=== PATIENT | female | born 1950 | race Caucasian/White ===

== ENCOUNTER 2022-09-13 13:19 | Emergency (ER) | payer MEDICARE, SELFPAY ==
[2022-09-13 13:18] VITALS: BP 162/86; PULSE 54; RESP 16; TEMP 36.7; O2SAT 100
--- NOTE | 2022-09-13 13:30 | DI.CT_ITS ---
Exam(s) CT HEAD CERVICAL SPINE WO EXAM: CT HEAD CERVICAL SPINE WO CLINICAL HISTORY: fall while skiing. TECHNIQUE: Imaging Protocol: Axial computed tomography images with coronal and sagittal reformatted images were created and reviewed COMPARISON: No exams were available for comparison FINDINGS: Head CT Ventricles and Extra axial spaces: Normal in size and morphology for the patient's age. Hemorrhage: None. Cerebral parenchyma: Normal. Midline shift: None. Brainstem/Cerebellum: Normal. Calvarium: Normal. Visualized Paranasal sinuses/Mastoids: Clear. Cervical Spine CT BONES: Vertebral body heights are maintained. Alignment is normal. There is no evidence of acute frac ture. Degenerative disc changes and facet degenerative changes are seen, particularly at C5-6 and C6-7. Th ere is severe narrowing of the disc spaces, endplate osteophytes and sclerosis. There is continued c ongenital incomplete segmentation of C3 and C4. Facet degenerative changes are greatest at C2-3 and C7-T1. There is slight spondylolisthesis at C7-T1. SOFT TISSUES: No paraspinal hematoma. The airway appears intact. No pneumothorax is seen at the lung apices. IMPRESSION: Head CT: No acute abnormality. C-spine CT: Degenerative changes, no acute abnormality. RADIATION DOSE DELIVERED: 1,511.19mGy.cm Total DLP DATA REPOSITORY: All CT scans at this facility are submitted to the National Radiology Data Registry (NRDR) Dose Index Registry (DIR) with the [employer] (A[employer]). RADIATION OPTIMIZATION: All CT scans at this facility use at least one of these dose optimization te chniques: automated exposure control; mA and/or kV adjustment per patient size (includes targeted exa ms where dose is matched to clinical indication); or iterative reconstruction.
--- NOTE | 2022-09-13 13:30 | DI.RAD_ITS ---
Exam(s) XR KNEE LT 4V+ EXAM: XR KNEE LT 4V+ CLINICAL HISTORY: fall/pain. TECHNIQUE: 2D digital imaging was performed. Three views. COMPARISON: No exams were available for comparison FINDINGS: BONES: No acute fracture is present. No bony destructive lesion is seen. JOINTS: The knee is normally aligned. No joint effusion is seen. No significant degenerative changes. SOFT TISSUE: Normal. IMPRESSION: Normal radiographs of the left knee. DATA REPOSITORY: RADIATION DOSE DELIVERED:
--- NOTE | 2022-09-13 13:47 | NUR.NOTE ---
Nursing Note: trying to obtain samples from both urethral catheter and nephrostomy tube, both have been clamped for about 1 and a half hours with no output. bladder scan shows about 51 mLs of urine after about 700m mLs of NS.
--- NOTE | 2022-09-13 14:08 | W.ED.GENAD ---
Discharge Plan Disposition Patient Disposition: Home Condition: Stable Discharge Details Clinical Impression: Head injury, Knee pain, left Primary Care Provider: None,None ED Provider: Gian Melo Home Meds and New Rx's Prescriptions: No Action No Known Home Meds Discharge Instructions Instructions: Head Injury (ED), Knee Pain (ED) Additional Instructions: CT imaging of head and C-spine are unremarkable. X-ray of knee unremarkable. You have a brace at home and have declined crutches. Brain rest as we discussed. Aodv-fyp-qmsrajy medication such as Tylenol and/or Motrin as directed for discomfort. Rest, elevate, cool compresses every 2 hours for 20 minutes. Please watch for new or worsening symptoms and return to the ER for any concerns. I would like you to avoid driving, physical activities that would put you at a higher risk of additional head injury, etc. until you have been reevaluated by your primary care provider and return to normal activity, please contact them on Thursday when you return home to [place]. Discharge Data Discharge Date/Time-TO BE ENTERED AT DEPARTURE: 09/13/22 15:28 Medical Decision Making This is a 71-year-old female denies significant past medical history, was skiing with a helmet on, believes that she fell going at a low speed, does not recall the entire incident. She reports that she was asymptomatic to the incident. Positive LOC. No obvious injury to the helmet. Patient reported neck pain in triage, denied to me. Placed into a c-collar given her head injury. Will obtain CT imaging of head and neck. We will also obtain x-ray of her left knee although low suspicion for acute bony abnormality. No clear indication to initiate other laboratory values. reports that she is at her baseline mental status. CT imaging of head and C-spine unremarkable. X-ray of left knee unremarkable Discussed imaging with patient and family. C-collar removed. Patient was ambulatory without assistance. Declines splint or crutches. They are returning to [place] tomorrow. Recommend that they follow-up there primary care provider. We discussed conservative measures for treatment of her left knee sprain as well as brain rest given her head injury with LOC. Patient appears well, nontoxic, neurologically intact. Requesting discharge. Standard discharge and return precautions were provided. Patient understands, is agreeable to this plan, and has no additional questions or concerns upon discharge. This documentation was generated using [employer] system, please disregard any oddities of phrase or misspellings. Imaging Data Radiologic Study: Attestation: I personally reviewed and interpreted this imaging study as follows: Imaging: X-Ray Radiologist's impression: PROCEDURE INFORMATION: Exam: XR Left Knee Exam date and time: 09/13/2022 2:07 PM Age: 71 years old Clinical indication: Other: Fall skiing, fall pain TECHNIQUE: Imaging protocol: Radiologic exam of the Left knee. Views: 4 or more views. COMPARISON: No relevant prior studies available. FINDINGS: Bones/joints: Normal. Soft tissues: Normal. IMPRESSION: No acute findings Radiologic Study #2: Attestation: I personally reviewed and interpreted this imaging study as follows: Imaging: CT Scan Radiologist's impression: PROCEDURE INFORMATION: Exam: CT Head Without Contrast Exam date and time: 09/13/2022 1:54 PM Age: 71 years old Clinical indication: Other: Fall skiing TECHNIQUE: Imaging protocol: Computed tomography of the head without contrast. Radiation optimization: All CT scans at this facility use at least one of these dose optimization techniques: automated exposure control; mA and/or kV adjustment per patient size (includes targeted exams where dose is matched to clinical indication); or iterative reconstruction. COMPARISON: No relevant prior studies available. FINDINGS: Brain: Minimal atrophy. No hemorrhage. Unremarkable white matter. No mass effect. Cerebral ventricles: No ventriculomegaly. Paranasal sinuses: Visualized sinuses are unremarkable. No fluid levels. Mastoid air cells: Visualized mastoid air cells are well aerated. Bones/joints: Unremarkable. No acute fracture. Soft tissues: Unremarkable. IMPRESSION: No acute intracranial abnormality. PROCEDURE INFORMATION: Exam: CT Cervical Spine Without Contrast Exam date and time: 09/13/2022 1:54 PMAge: 71 years old Clinical indication: Other: Fall skiing TECHNIQUE: Imaging protocol: Computed tomography of the cervical spine without contrast. Radiation optimization: All CT scans at this facility use at least one of these dose optimization techniques: automated exposure control; mA and/or kV adjustment per patient size (includes targeted exams where dose is matched to clinical indication); or iterative reconstruction. COMPARISON: No relevant prior studies available. FINDINGS: Bones/joints: Straightening of the normal cervical alignment. Incomplete segmentation C3-C4. Multilevel advanced disc degeneration. Anterolisthesis C7 on T1 measuring 3 mm. Normal facet alignment. Lungs: Lung apices are normal. Soft tissues: Unremarkable. IMPRESSION: No cervical spine fracture. HPI General Mode of arrival: EMS. Date/Time Provider Initiated Documentation: 09/13/22 13:32. Limitations to Documentation: no limitations. Information obtained by: patient, family and EMS. HPI Narrative: This is a 71-year-old female, denies significant past medical history presents to the ER via EMS status post skiing accident, was wearing a helmet, complains of mild left knee pain, believes that she hit her head and there was a positive LOC, cannot recall all of the incident today. She initially reported neck pain in triage but denies neck pain to me. Denies global headache, visual changes, chest pain, shortness of breath, abdominal pain, vomiting, numbness, tingling, weakness, change in bowel or bladder function. Patient states that she felt well prior to this incident. She does report mild nausea. Related Data Home Medications Medication Instructions Recorded Confirmed Unknown [No Known Home Meds] 09/13/22 09/13/22 Allergies Allergy/AdvReac Type Severity Reaction Status Date / Time erythromycin base AdvReac Mild Nausea Unverified 09/13/22 13:28 [From Erythrocin] General Stated Complaint: Trauma CLIF: 3 Review of Systems Constitutional Constitutional: Denies fever(s), Denies headache(s) and Denies weakness Eyes Eyes: Denies change in vision ENT Ears, Nose, Mouth, and Throat: Denies headache(s) and Reports neck pain (In triage, denies to me) Cardiovascular Cardiovascular: Denies chest pain and Denies dyspnea Respiratory Respiratory: Denies cough and Denies dyspnea Gastrointestinal Gastrointestinal: Denies abdominal pain, Reports nausea and Denies vomiting Genitourinary Genitourinary: Denies urinary incontinence Musculoskeletal Musculoskeletal: Denies back pain, Reports neck pain (In triage, denies to me), Denies numbness and Denies tingling Integumentary/Breasts Skin/Breast: Denies rash Neurologic Neurologic: Denies headache(s), Denies numbness, Denies tingling and Denies weakness Hematologic/Lymphatic Hematologic/Lymphatic: Denies easy bleeding and Denies easy bruising PFSH All Active Problems Head injury (Acute) Knee pain, left (Acute) Social History Smoking/Tobacco Use Status: Never Smoking risk assessment performed?: Yes Alcohol Intake: current Alcohol Intake frequency: 3 or more drinks per day Alcohol type: wine Drug use: Daily Substance use type: marijuana Do you feel safe at home: Yes Do you feel safe in your relationship?: Yes Exam Const General: cooperative, healthy appearing, comfortable and no acute distress Orientation: alert, awake and oriented x3 HENME Head: normal to inspection, no palpable skull fracture, normocephalic and atraumatic Ears: external ears normal, TM's normal bilaterally and EAC's normal Face and sinus: normal facial exam Mouth: moist mucous membranes Throat: posterior oropharynx normal Eyes General: appearance normal, both eyes and all related structures Alignment and Position: alignment normal Periorbital: periorbital findings normal Eyelids: eyelids normal Conjunctivae: conjunctivae normal Sclera: sclerae normal Cornea: corneas normal Pupils: PERRL EOM: EOM intact bilaterally Direct ophthalmoscopy: normal light reflex Neck Neck: normal visual inspection, trachea midline, supple, tender (Diffuse mild posterior right-sided) and other (Patient in a hard c-collar) Chest Chest: normal inspection of the chest and normal palpation of entire chest wall Resp Effort & Inspection: normal respiratory effort and able to speak in complete sentences Auscultation: clear to auscultation bilaterally Cardio Rate: regular rate Rhythm: regular rhythm GI Palpation: soft, not firm, no guarding, no pulsatile masses and nontender Back/Spine/Pelvis Back: no CVA tenderness and No back tenderness Skin General skin exam: no rashes or lesions noted Neuro General: patient alert, patient awake, patient oriented x3, moves all extremities and no focal motor deficits Cranial Nerves: CN's II-XI intact bilaterally Cognition: normal cognition Speech: speech normal Gait: normal gait Motor: muscle tone normal throughout Sensory Exam: no sensory deficits noted Extrem General: normal to inspection, full ROM and capillary refill normal Other: Left knee with minimal diffuse discomfort. Full range of motion. No swelling, erythema, ecchymosis. No deformity. Skin intact. No laxity. Negative anterior draw sign. Normal pedal pulse and capillary refill. Psych Appearance: grossly normal Mental Status: mental status grossly normal Course Vital Signs Vital signs: Vital Signs Temperature 36.7 C 09/13/22 13:18 Pulse 54 L 09/13/22 13:18 Respiratory Rate 16 09/13/22 13:18 Blood Pressure 162/86 H 09/13/22 13:18 Pulse Oximetry 100 09/13/22 13:18 Temperature 36.7 C 09/13/22 13:18 Temperature Source Skin 09/13/22 13:18 Pulse 54 L 09/13/22 13:18 Respiratory Rate 16 09/13/22 13:18 Respiratory Effort Non-Labored 09/13/22 13:29 Respiratory Depth Normal 09/13/22 13:29 Respiratory Pattern Normal 09/13/22 13:29 Blood Pressure 162/86 H 09/13/22 13:18 Blood Pressure Position Supine 09/13/22 13:18 Pulse Oximetry 100 09/13/22 13:18 Oxygen Delivery Method Room Air 09/13/22 13:18 Oxygen Flow Rate 0 09/13/22 13:18 Pain Level 4 09/13/22 13:29
--- NOTE | 2022-09-13 14:38 | DI.VRAD_ITS ---
PROCEDURE INFORMATION: Exam: XR Left Knee Exam date and time: 09/13/2022 2:07 PM Age: 71 years old Clinical indication: Other: Fall skiing, fall pain TECHNIQUE: Imaging protocol: Radiologic exam of the Left knee. Views: 4 or more views. COMPARISON: No relevant prior studies available. FINDINGS: Bones/joints: Normal. Soft tissues: Normal. IMPRESSION: No acute findings. Dictated and Authenticated by: Dk Zayas MD. Ordering:MARQUIS Springer MD
--- NOTE | 2022-09-13 14:42 | DI.VRAD_ITS ---
PROCEDURE INFORMATION: Exam: CT Head Without Contrast Exam date and time: 09/13/2022 1:54 PM Age: 71 years old Clinical indication: Other: Fall skiing TECHNIQUE: Imaging protocol: Computed tomography of the head without contrast. Radiation optimization: All CT scans at this facility use at least one of these dose optimization techniques: automated exposure control; mA and/or kV adjustment per patient size (includes targeted exams where dose is matched to clinical indication); or iterative reconstruction. COMPARISON: No relevant prior studies available. FINDINGS: Brain: Minimal atrophy. No hemorrhage. Unremarkable white matter. No mass effect. Cerebral ventricles: No ventriculomegaly. Paranasal sinuses: Visualized sinuses are unremarkable. No fluid levels. Mastoid air cells: Visualized mastoid air cells are well aerated. Bones/joints: Unremarkable. No acute fracture. Soft tissues: Unremarkable. IMPRESSION: No acute intracranial abnormality. PROCEDURE INFORMATION: Exam: CT Cervical Spine Without Contrast Exam date and time: 09/13/2022 1:54 PM Age: 71 years old Clinical indication: Other: Fall skiing TECHNIQUE: Imaging protocol: Computed tomography of the cervical spine without contrast. Radiation optimization: All CT scans at this facility use at least one of these dose optimization techniques: automated exposure control; mA and/or kV adjustment per patient size (includes targeted exams where dose is matched to clinical indication); or iterative reconstruction. COMPARISON: No relevant prior studies available. FINDINGS: Bones/joints: Straightening of the normal cervical alignment. Incomplete segmentation C3-C4. Multilevel advanced disc degeneration. Anterolisthesis C7 on T1 measuring 3 mm. Normal facet alignment. Lungs: Lung apices are normal. Soft tissues: Unremarkable. IMPRESSION: No cervical spine fracture. Dictated and Authenticated by: Dk Zayas MD. Ordering:MARQUIS Springer MD
== END 2022-09-13 15:28 | disposition home or self-care (01) ==
PROVIDERS: Emergency Provider Physician Assistant
DX: S06.9X9A Unspecified intracranial injury with loss of consciousness of unspecified duration, initial encounter (principal); G89.11 Acute pain due to trauma; M25.562 Pain in left knee; W19.XXXA Unspecified fall, initial encounter; Y93.23 Activity, snow (alpine) (downhill) skiing, snowboarding, sledding, tobogganing and snow tubing
CPT/HCPCS: 99284; 70450; 72125; 73564; 99283